=== PATIENT | male | born 1990 | race Caucasian/White ===

== ENCOUNTER 2020-10-31 17:23 | Emergency (ER) | payer SELFPAY ==
[2020-10-31 17:26] VITALS: BP 153/70; PULSE 110; RESP 16; TEMP 37.2; O2SAT 98; BMI 33.0
--- NOTE | 2020-10-31 17:38 | DI.RAD.S_ITS ---
PROCEDURE: XR ANKLE LT MIN 3V INDICATIONS: injury TECHNIQUE: 3 views of the ankle were acquired. COMPARISON: None. FINDINGS: Bones: Lateral malleolar fracture at the level of the tibia-fibular syndesmosis and slightly cephalad. Soft tissues: Overlying soft tissue swelling. IMPRESSION: Lateral malleolar fracture Dictated by: Javier Hogan M.D. on 10/31/2020 at 18:04 Approved by: Javier Hogan M.D. on 10/31/2020 at 18:05
[2020-10-31 18:58] VITALS: BP 159/96; PULSE 99; TEMP 37.6; O2SAT 97
--- NOTE | 2020-10-31 19:11 | ED_ITS ---
HPI - Extremity Injury (Lower) General Chief Complaint: Extremity Injury, Lower Stated Complaint: LT ANKLE INJURY Time Seen by Provider: 10/31/20 18:05 Source: patient Mode of arrival: Wheelchair Limitations: no limitations History of Present Illness HPI Narrative: Patient is a 30-year-old male here for evaluation of a left ankle injury. He states that yesterday he was jumping down off his truck and landed flat on the ground. Had immediate pain in his left ankle. Has been limping around on it for the past 24 hours. It started to swell and have bruising today so he decided to come the emergency department for evaluation. No prior injuries to his ankle. Related Data Home Medications Medication Instructions Recorded Confirmed FAMOTIDINE (Pepcid) 20 mg PO PRN #0 04/15/10 Allergies Allergy/AdvReac Type Severity Reaction Status Date / Time No Known Drug Allergies Allergy Verified 10/31/20 17:35 Review of Systems Constitutional Constitutional: Denies fever(s) Musculoskeletal Comments: Left ankle pain Integumentary/Breasts Comments: Swelling and bruising to left ankle Neurologic Neurologic: Denies paresthesias Hematologic/Lymphatic Hematologic/Lymphatic: Denies easy bleeding and Denies easy bruising Allergic/Immunologic Allergic/Immunologic: Denies urticaria Patient History Medical History Patient denies medical problems Social History Smoking Status: Never smoker Smoking Status: Never smoker Substance Use Type: marijuana Exam Initial Vital Signs Initial Vital Signs: Vital Signs Temperature 99 F 10/31/20 17:26 Pulse Rate 110 H 10/31/20 17:26 Respiratory Rate 16 10/31/20 17:26 Blood Pressure 153/70 H 10/31/20 17:26 Pulse Oximetry 98 10/31/20 17:26 Const General: cooperative and comfortable Limitations: mental status not altered HENMT Head: normal to inspection and normocephalic Cardio Pulses: dorsalis pedis present on the left Skin Other: Bruising located on the anterior tibia and lateral portion of the left foot/ankle Neuro Sensory Exam: no sensory deficits noted Extrem Other: No proximal fibula tenderness. Does have tenderness palpation along the medial and lateral malleolus. Has swelling throughout the left ankle and foot. Procedures Orthopedic Splinting/Casting Injury #1: Side: left Lower Extremity Injury Location: ankle Lower Extremity Immobilizer: posterior splint Other Orthopedic Equipment: crutches Post splinting neuro exam: no change Post splinting vascular exam: no change Placed by: Nursing Course Orders Ordered: ED Orders 10/31/20 17:38 XR ankle LT min 3V Stat Vital Signs Vital signs: Vital Signs - 8 hr 10/31/20 18:58 Temperature 99.6 F Pulse Rate 99 H Blood Pressure 159/96 H Pulse Oximetry 97 MDM - Extremity Injury (Lower) Imaging Data Extremity x-ray #1: Radiologist's Impression: [address] [id number] ReportSigned Patient: Stalin Garza CMR#: [id number]: 1990Acct:[id number]/Sex: 30 MDate of Service: 10/31/20Loc: EDAccession Number: [id number] Procedure: XR ankle LT min 3V Ordering Provider: Ida Negron D.O. PROCEDURE: XR ANKLE LT MIN 3V INDICATIONS: injury TECHNIQUE: 3 views of the ankle were acquired. COMPARISON: None. FINDINGS: Bones: Lateral malleolar fracture at the level of the tibia-fibular syndesmosis and slightly cephalad. Soft tissues: Overlying soft tissue swelling. IMPRESSION: Lateral malleolar fracture Dictated by: Javier Hogan M.D. on 10/31/2020 at 18:04 Approved by: Javier Hogan M.D. on 10/31/2020 at 18:05 [facility] Narrative Medical decision making narrative: The patient is neurovascularly intact. Does have some significant swelling and bruising around the left ankle. The x-ray s hows what appears to be an isolated distal fibula fracture. He has no proximal fibula or tibia tenderness. His knee is unremarkable. He does have tenderness over the medial malleolus. Plan will be is to place him in a posterior splint to make him nonweightbearing for the next week. I suspect that the swelling will improve and the medial malleolar tenderness will probably resolve as well. If this happens then he can be placed in a walking boot. I did inform him that he should follow-up in approximately 1 week with either primary doctor or an orthopedic provider or here in the emergency department for re-evaluation. He may need a another x-ray to confirm that this is a isolated fibula fracture. I discussed all this with the patient. He expressed understanding and agreement. Discharge Plan Departure Patient Disposition: Home Clinical Impression: Fibula fracture Instructions: How to Use Crutches, DI for Ankle Fracture, How to Take Care of Your Splint Activity Restrictions/Additional Instructions: The splint needs to stay on and stay clean and stay dry. Do not walk on your left leg. Use the crutches. I recommend that in 1 week you follow-up with either the [facility] at [phone]. You can also contact the health resource is coordinator here at the hospital at [phone] to help you establish a primary provider. Prescriptions: No Action FAMOTIDINE (Pepcid) 20 mg PO PRN Qty: 0 RF: 0
== END 2020-10-31 19:41 | disposition home or self-care (01) ==
PROVIDERS: Emergency Provider Emergency Medicine; Family Provider Pediatrics
DX: S82.62XA Displaced fracture of lateral malleolus of left fibula, initial encounter for closed fracture (principal); Y93.39 Activity, other involving climbing, rappelling and jumping off
CPT/HCPCS: 29515; 73610; 99281; 99283